=== PATIENT | female | born 1945 | race Caucasian/White ===

== ENCOUNTER → 2018-11-23 13:07 | Outpatient (CLI) | payer OTHER, SELFPAY ==
--- NOTE | 2018-11-23 | DI.CT.S_ITS ---
PROCEDURE: CT CHEST W CON INDICATIONS: SARCOIDOSIS TECHNIQUE: After the administration of intravenous contrast, 5 mm thick sections acquired from the pulmonary apices to the posterior costophrenic angles. 7 mm thick coronal and sagittal MIP reformats were acquired. For radiation dose reduction, the following was used: automated exposure control, adjustment of mA and/or kV according to patient size. COMPARISON: [facility], CT, CHEST HI-RESOLUTION, 09/27/2012, 11:54. [facility], CT, CHEST HIGH RESOLUTION, 06/02/2012, 13:13. [facility], CT, CT CHEST WO CON, 10/28/2015, 12:57. [facility], CT, CT CHEST WITHOUT CONTRAST, 11/07/2017, 9:11. FINDINGS: Image quality: Excellent. Lungs and pleura: There is right upper lobe airspace opacity involving the posterior segment, slightly increased. There are patchy groundglass infiltrates, which is new when compared to the last exam. There are numerous pulmonary nodules bilaterally, stable. There is mild left pleural thickening, unchanged. No pleural effusions. Central and peripheral airways are patent and normal in caliber. Mediastinum: Enlarged mediastinal and hilar lymph nodes are present. Multiple lymph nodes are calcified. Overall, there is no significant change. Heart size is normal. No pericardial effusion. No mediastinal or hilar adenopathy by size criteria. Thoracic aorta and central pulmonary arteries are normal in size. Esophagus is normal in caliber. No hiatal hernia. Bones and chest wall: No suspicious bony lesions. No vertebral body compression fractures. No axillary or supraclavicular adenopathy by size criteria. Thyroid gland is normal. Abdomen: Visualized upper abdominal solid organs appear normal. Upper abdominal bowel loops are normal in caliber. IMPRESSION: 1. New bilateral patchy groundglass infiltrates consistent with pneumonia/pneumonitis. The finding is new when compared to the last chest CT. 2. Airspace predominantly involving the posterior segment of the right upper lobe and left perihilar region are slightly increased. 3. Numerous pulmonary nodules bilaterally are stable. 4. Mediastinal and bilateral hilar lymphadenopathy. Multiple lymph nodes are calcified. Overall, lymphadenopathy is not significant changed. Dictated by: Neto Garza M.D. on 11/23/2018 at 14:51 Approved by: Neto Garza M.D. on 11/23/2018 at 18:10
== END ==
PROVIDERS: Family Provider Neuromusculoskeletal Medicine & OMM; PCP Family Medicine; Visit Provider Internal Medicine Critical Care Medicine
DX: D86.9 Sarcoidosis, unspecified (principal); R59.1 Generalized enlarged lymph nodes; R91.8 Other nonspecific abnormal finding of lung field
CPT/HCPCS: 71260; Q9967

== ENCOUNTER 2019-01-25 10:15 | Day surgery (SDC) | payer OTHER, SELFPAY ==
[2019-01-25] MEDS: LIDOCAINE 1% 30 ML INJ EYE-RIGHT (11:19)
[2019-01-25 11:20] VITALS: BP 132/73; PULSE 90; RESP 15; TEMP 36.7; O2SAT 95; BMI 25.1
[2019-01-25] MEDS: CATARACT EYE COMPOUND (10 DROPS/SYRINGE) 3 DROPS EYE-OP (11:20)
--- NOTE | 2019-01-25 12:21 | PM.PREOP ---
Pre-operative Note Interval Note History & Physical reviewed/Exam performed by Physician: Yes Changes to H&P: No
--- NOTE | 2019-01-25 12:35 | SUR.OPER ---
Supine on eye stretcher, head on extension cradle secured with tape. Arms tucked at sides with blanket. Pillow under knees.
[2019-01-25] MEDS: CHONDROIDTIN/SOD HYALURONATE 1.05 ML SYRINGE INTRAOCULA (12:37)
[2019-01-25] MEDS: PHENYLEPHRINE/LIDOCAINE VIAL (OR) 0.2 ML EYE-OP (12:37)
[2019-01-25] MEDS: MOXIFLOXACIN OPHTH DROPS 3 ML BOTTLE 2 DROPS INJ (12:37)
[2019-01-25] MEDS: BALANCED SALT IRRIG SOLN NO.2 500 ML, EPINEPHrine 1 MG IRR (12:38)
[2019-01-25] MEDS: LIDOCAINE 2% INJ SDV 5 ML INJ (12:39)
[2019-01-25] MEDS: BALANCED SALT IRRIG SOLN NO.2 15 ML IRR (12:40)
--- NOTE | 2019-01-25 12:51 | PM.OP.1 ---
Procedure & Clinicians Procedure: Cataract extraction with intraocular lens implant, right Same procedure as scheduled: Yes Indications: Visually significant cataract, right Surgeon: Gareth Dsouza Click Yes if Unassisted: Yes Anesthesia Type: MAC +/- Operative Notes Procedure in detail: The patient was brought to the operating suite. The correct patient, surgical site and lens were confirmed. 1 % lidocaine preservative free was placed in the right eye. The patient was prepped and draped in the typical sterile manner. A lid speculum was placed in the eye. 2% lidocaine preservative free was placed on the eye. A paracentesis port was created with a side-port blade. 0.1 mL of 1% preservative free lidocaine with phenylephrine was injected into the anterior chamber. Viscoelastic was injected into the anterior chamber. A 2.6mm keratome was used to create a clear corneal temporal incision. Cystotome and Utrata forceps were used to create a continuous curvilinear capsulorrhexis. Balanced salt solution was used to hydrodissect the nucleus. Phacoemulsification was used to remove the lens. The capsular bag was inflated with viscoelastic. A Stokes ZBOO +21.5 D lens was inserted into the capsule. Viscoelastic was removed and the wound hydrated. The wound was found to be leak free and the eye was assessed to be at normal physiologic pressure. 0.1mL Vigamox was injected into the anterior chamber. The lid speculum was removed and the patient left the operating room in excellent condition. Complications: none Condition: stable Disposition: same day surgery
[2019-01-25 13:05] VITALS: BP 132/65; PULSE 80; RESP 15; TEMP 36.4; O2SAT 94
--- NOTE | 2019-01-25 16:39 | SUR.PHASEII ---
latonya bill rn discharged pt and took out iv
== END 2019-01-25 13:11 ==
LOC: OR 10:17
PROVIDERS: PCP Family Medicine; Visit Provider Ophthalmology
DX: H26.8 Other specified cataract (principal); I10 Essential (primary) hypertension; J45.909 Unspecified asthma, uncomplicated
CPT/HCPCS: J0171; J2250; J2704; J3010

== ENCOUNTER 2019-02-15 07:56 | Day surgery (SDC) | payer OTHER, SELFPAY ==
[2019-02-15] MEDS: CATARACT EYE COMPOUND (10 DROPS/SYRINGE) 3 DROPS EYE-OP (08:50)
[2019-02-15 09:00] VITALS: BP 144/73; PULSE 89; RESP 15; TEMP 36.5; O2SAT 94; BMI 24.8
--- NOTE | 2019-02-15 09:54 | PM.PREOP ---
Pre-operative Note Interval Note History & Physical reviewed/Exam performed by Physician: Yes Changes to H&P: No
--- NOTE | 2019-02-15 10:12 | SUR.OPER ---
Supine on eye stretcher, head on extension cradle secured with tape. Arms tucked at sides with blanket. Pillow under knees.
[2019-02-15] MEDS: PHENYLEPHRINE/LIDOCAINE VIAL (OR) 0.2 ML EYE-OP (10:18)
[2019-02-15] MEDS: MOXIFLOXACIN OPHTH DROPS 3 ML BOTTLE 2 DROPS INJ (10:19)
[2019-02-15] MEDS: CHONDROIDTIN/SOD HYALURONATE 1.05 ML SYRINGE INTRAOCULA (10:19)
[2019-02-15] MEDS: BALANCED SALT IRRIG SOLN NO.2 15 ML IRR (10:20)
[2019-02-15] MEDS: TETRACAINE 0.5% OPHTH DROPS 4 ML 1 DROPS EYE-LEFT (10:20)
[2019-02-15] MEDS: BALANCED SALT IRRIG SOLN NO.2 500 ML, EPINEPHrine 1 MG IRR (10:21)
[2019-02-15] MEDS: LIDOCAINE 2% INJ SDV 0.5 ML TOP (10:22)
--- NOTE | 2019-02-15 10:33 | PM.OP.1 ---
Procedure & Clinicians Procedure: Cataract extraction with intraocular lens implant, left Same procedure as scheduled: Yes Indications: Visually significant cataract, left Surgeon: Gareth Dsouza Click Yes if Unassisted: Yes Anesthesia Type: MAC +/- Operative Notes Procedure in detail: The patient was brought to the operating suite. The correct patient, surgical site and lens were confirmed. 0.5 % tetracaine drops were placed in the left eye. The patient was prepped and draped in the typical sterile manner. A lid speculum was placed in the eye. 2% lidocaine was placed on the eye. A paracentesis port was created with a side-port blade. 0.1 mL of 1% preservative free lidocaine with phenylephrine was injected into the anterior chamber. Viscoelastic was injected into the anterior chamber. A 2.6mm keratome was used to create a clear corneal temporal incision. Cystotome and Utrata forceps were used to create a continuous curvilinear capsulorrhexis. Balanced salt solution was used to hydrodissect the nucleus. Phacoemulsification was used to remove the lens. The capsular bag was inflated with viscoelastic. A Stokes ZBOO +22.0D lens was inserted into the capsule. Viscoelastic was removed and the wound hydrated. The wound was found to be leak free and the eye was assessed to be at normal physiologic pressure. 0.1mL Vigamox was injected into the anterior chamber. The lid speculum was removed and the patient left the operating room in excellent condition. Complications: none Condition: stable Disposition: same day surgery
[2019-02-15 10:36] VITALS: BP 121/59; PULSE 76; RESP 16; TEMP 36.3; O2SAT 94
== END 2019-02-15 10:45 | disposition home or self-care (01) ==
LOC: OR 08:00
PROVIDERS: PCP Family Medicine; Visit Provider Ophthalmology
DX: H26.8 Other specified cataract (principal); I10 Essential (primary) hypertension; F32.9 Major depressive disorder, single episode, unspecified; J45.909 Unspecified asthma, uncomplicated; I47.1 Supraventricular tachycardia
CPT/HCPCS: J0171; J2250; J3010

== ENCOUNTER → 2019-03-02 07:49 | Outpatient (CLI) | payer OTHER, SELFPAY ==
--- NOTE | 2019-03-02 | DI.ECHO.S_ITS ---
[facility]---------+ [facility] +---------+ : : [address] [place] : : : : [id number] : : : : Phone: [phone]+ Echocardiogram Report + + :Name: DEBORAH BERUMEN Study Date: 03/02/2019 Height: 62 in : :[facility] Weight: 150 lb : : Gender: Female BSA: 1.7 m2 : :: 1945 Age: 73 yrs BP: 172/78 mmHg: :Reason For Study: Sarcoidosis : :Ordering Physician: Janet : :Jesus Performed By: Aurelia Ceballos : :Referring: NEHA RUBIO : + + Interpretation Summary 1) Normal left ventricular thickness, size, wall motion, and systolic function (EF 60-65%). 2) Normal right ventricular size and function. 3) No significant valvular abnormalities. 4) The right ventricular systolic pressure is estimated to be at least 55 mmHg based on an estimated right atrial pressure of 3 mm Hg. 5) Compared to the Echo done 02/27/2016, pulmonary hypertension is present on this study. Procedure: A two-dimensional transthoracic echocardiogram with color flow and Doppler was performed. The study quality was technically adequate. Comparison is made with the echocardiogram of 02-27-16. The patient was in normal sinus rhythm during the exam. Left Ventricle: The left ventricle is normal in size, wall thickness, and systolic function without any focal wall motion abnormalities. The ejection fraction is estimated to be 60-65%. Diastolic parameters suggest probable normal left ventricular diastolic function and normal filling pressures. Right Ventricle: The right ventricle grossly appears normal in size with probable normal systolic function. Atria: The left atrial size is normal. Right atrial size is normal. The interatrial septum is intact with no evidence for an atrial septal defect. Mitral Valve: The mitral valve is normal in structure and function. There is no mitral regurgitation noted. Aortic Valve: The aortic valve opens well. There is no aortic valve stenosis. No aortic regurgitation is present. Tricuspid Valve: The tricuspid valve leaflets are thin and pliable. There is mild tricuspid regurgitation. The right ventricular systolic pressure is estimated to be at least 55 mmHg based on an estimated right atrial pressure of 3 mm Hg. Pulmonic Valve: The pulmonic valve is not well seen, but is grossly normal. There is no pulmonic valvular regurgitation. Great Vessels: The aortic root is normal size. The dimensions of the ascending aorta are normal. The aortic arch is normal in size. The IVC is of normal diameter and collapses greater than 50% with a sniff. This suggests a low right atrial pressure of 3 mm Hg. Pericardium/ Pleura There is no pericardial effusion. There is no pleural effusion. MMode/2D Measurements & Calculations LVIDd: 4.6 cm Ao root diam: 2.7 cm LVIDs: 2.8 cm Aortic Jxn: 2.3 cm FS: 40.1 % asc Aorta Diam: 2.8 cm EPSS: 0.68 cm Ao Arch Diam (Prox Trans): 2.6 cm IVSd: 0.86 cm LVPWd: 1.1 cm LV muñoz. diameter/BSA (cm/m^2): 2.7 LV sys. diameter/BSA (cm/m^2): 1.6 LA dimension: 3.7 cm RA long axis: 4.4 cm LA A2 area: 19.2 cm2 RA area: 12.4 cm2 LA A4 area: 17.3 cm2 RA vol: 29.7 ml LA length (vol): 5.0 cm RA : 17.6 ml/m2 LA vol: 55.9 ml IVC diam: 1.4 cm LA vol index: 33.1 ml/m2 RVDd major: 5.5 cm RVD1 (basal): 3.1 cm RVD2 (mid): 2.7 cm Doppler Measurements & Calculations Ao V2 max: 153.7 cm/sec MV E max scot: 97.0 cm/sec Ao V2 mean: 98.3 cm/sec MV A max scot: 126.1 cm/sec Ao max P.4 mmHg MV E/A: 0.77 Ao mean P.5 mmHg Med Peak E' Scot: 8.3 cm/sec Ao V2 VTI: 32.2 cm E/E' med: 11.8 Lat Peak E' Scot: 8.0 cm/sec E/E' lat: 12.1 E/e' average: 11.9 MV dec time: 0.22 sec MV P1/2t: 64.0 msec TR max scot: 360.6 cm/sec MV P1/2t max scot: 96.5 cm/sec TR max P.0 mmHg MVA(P1/2t): 3.4 cm2 PA V2 max: 76.8 cm/sec PA V2 mean: 57.0 cm/sec PA mean P.4 mmHg PA Accel Time: 0.14 sec Reading Physician:12:11 PM
--- NOTE | 2019-03-30 16:54 | PM.PFT.1 ---
Pulmonary Function Test Referral & Results Date Patient Seen: 03/02/19 Requesting provider: Dee Gardner Indication: Dyspnea Results: The spirometry demonstrates an FVC of 2.12 L which is 71% of predicted. The FEV1 was measured at 1.84 L which is 82% of predicted. The FEV1/FVC ratio was 87 which is 115% of predicted. Following the administration of bronchodilator there was no significant change. Lung volumes show an SVC of 2.30 L which is 80% of predicted. The diffusing capacity was measured at 12.27 which is 47% of predicted. No hemoglobin value was provided, so no correction for potential anemia could be made, if appropriate. The maximum voluntary ventilation was reduced Interpretation: This study demonstrates mild obstructive lung disease without evidence of significant benefit following bronchodilator There may also be mild restrictive lung disease present based on slight reduction in SVC There is a more significant reduction in diffusing capacity suggesting more significant disease of the capillary alveolar level Compared to PFTs performed in May 2012, spirometry shows decline in FEV1 and SVC. There is also a smaller decline in diffusing capacity Clinical correlation suggested
== END ==
PROVIDERS: PCP Family Medicine; Visit Provider Internal Medicine Critical Care Medicine
DX: R06.09 Other forms of dyspnea (principal); D86.0 Sarcoidosis of lung; D86.9 Sarcoidosis, unspecified
CPT/HCPCS: 93306; 94060; 94726; 94729

== ENCOUNTER → 2019-03-14 09:03 | Outpatient (CLI) | payer OTHER, SELFPAY ==
--- NOTE | 2019-03-14 | DI.CT.S_ITS ---
PROCEDURE: CT CHEST W CON INDICATIONS: PULMONARY SARCOIDOSIS TECHNIQUE: After the administration of intravenous contrast, 5 mm thick sections acquired from the pulmonary apices to the posterior costophrenic angles. 7 mm thick coronal and sagittal MIP reformats were acquired. For radiation dose reduction, the following was used: automated exposure control, adjustment of mA and/or kV according to patient size. COMPARISON: [facility], CT, CT CHEST W CON, 11/23/2018, 13:13. [facility], CT, CHEST HIGH RESOLUTION, 06/02/2012, 13:13. FINDINGS: Image quality: Excellent. Lungs and pleura: Numerous poorly defined nodules are seen throughout the lungs, which are overall improved compared to the 11/23/18 CT examination. Areas of pulmonary consolidation are seen, which are most prominent involving the right upper lobe. These consolidated regions are also improved compared to the prior CT examination. No pneumothorax can be seen. There is a trace left-sided pleural effusion. No right-sided neural effusion is seen. The central airways are patent. Mediastinum: Heart size is normal. No pericardial effusion. No mediastinal or hilar adenopathy by size criteria. Numerous calcified lymph nodes are seen involving the mediastinum and perihilar regions. Thoracic aorta and central pulmonary arteries are normal in size. Esophagus is normal in caliber. No hiatal hernia. Bones and chest wall: No suspicious bony lesions. No vertebral body compression fractures. Age-appropriate bony degenerative changes are seen. Accentuated thoracic kyphosis is seen. No axillary or supraclavicular adenopathy by size criteria. Thyroid gland is small in size. Abdomen: Gastroesophageal junction postoperative changes are seen. Calcified foci are seen adjacent to the distal esophagus, which are attributed to calcified lymph nodes and appears similar to the calcified lymph node seen within the mediastinum. The visualized portions of the upper abdominal structures are otherwise unremarkable for imaging technique. IMPRESSION: Improved poorly defined pulmonary nodules and areas of consolidation within the lungs compared to the prior CT. Trace left-sided pleural effusion. Numerous densely calcified lymph nodes are seen involving the mediastinum, or hilar regions, and adjacent to the distal esophagus. Dictated by: Hector Penaloza M.D. on 03/14/2019 at 9:17 Approved by: Hector Penaloza M.D. on 03/14/2019 at 9:22
== END ==
PROVIDERS: PCP Family Medicine; Visit Provider Internal Medicine Critical Care Medicine
DX: D86.0 Sarcoidosis of lung (principal)
CPT/HCPCS: 71260; Q9967

== ENCOUNTER → 2019-03-21 09:57 | Outpatient (CLI) | payer OTHER, SELFPAY ==
--- NOTE | 2019-03-21 14:49 | PM.TREADMILL ---
Cardiac Stress Test Report Referral & Results Date Patient Seen: 03/21/19 Time Patient Seen: 14:30 Requesting provider: Enrique Unger Indication: Pulmonary HTN, SINGH Procedure Note: Today following both written and verbal informed consent the patient was exercised according to a standard Jamil protocol patient went for a total of 4:46 achieving a maximum heart rate of 116 maximum systolic blood pressure of 160. This is approximately 7 METS. Exercise was terminated at this point because the patient was unable to continue. Experienced angina, shortness of breath, lightheadedness. Patient was also given Cardiolite through a previously started Hep-Lock IV by the nuclear plant construction worker approximately 30 seconds prior to the cessation of exercise. Her dyspnea and lightheadedness progressed faster than expected. Symptoms resolved with rest. BONITA 10% on sedentary scale. Mild ST depression in II-III-aVF resolved with rest. Impression: Will await perfusion imaging. Clinical interpretation is complicated by pre-existing pulmonary hypertension and sarcoidosis. Please note: Actual ECG tracings can be found in the PACS system.
--- NOTE | 2019-03-21 14:53 | P.PCN_ITS ---
Cardiac Stress Test Report Referral & Results Date Patient Seen: 03/21/19 Time Patient Seen: 14:30 Requesting provider: Enrique Unger Indication: Pulmonary HTN, SINGH Procedure Note: Today following both written and verbal informed consent the patient was exercised according to a standard Jamil protocol patient went for a total of 4:46 achieving a maximum heart rate of 116 maximum systolic blood pressure of 160. This is approximately 7 METS. Exercise was terminated at this point because the patient was unable to continue. Experienced angina, shortness of breath, lightheadedness. Patient was also given Cardiolite through a previously started Hep-Lock IV by the nuclear radiation engineer approximately 30 seconds prior to the cessation of exercise. Her dyspnea and lightheadedness progressed faster than expected. Symptoms resolved with rest. BONITA 10% on sedentary scale. Mild ST depression in II-III-aVF resolved with rest. Impression: Will await perfusion imaging. Clinical interpretation is complicated by pre-existing pulmonary hypertension and sarcoidosis. Please note: Actual ECG tracings can be found in the PACS system.
--- NOTE | 2019-03-21 19:00 | DI.NM.S_ITS ---
DATE OF SERVICE: 03/21/2019 PROCEDURE: Exercise perfusion study. INDICATIONS: Shortness of breath with underlined sarcoidosis, hypertension, hyperlipidemia, history of atrial fibrillation. RADIOPHARMACEUTICAL: 27.9 mCi technetium-99m Myoview IV was injected at stress and 12.6 mCi technetium-99m Myoview IV was injected at rest. CARDIAC STRESS: Patient underwent exercise perfusion study under the supervision of an attending staff. The patient walked on Jamil protocol for about 4 minutes 46 seconds and achieved normal blood pressure and target heart rate of 79%. Functional aerobic impairment +10%. She achieved 7 METs of workload. She felt shortness of breath and lightheadedness on exertion. Baseline EKG revealed sinus rhythm with up to 0.5 mm of horizontal upsloping ST depression in inferiorly leads and lead V3 to V6 which got slightly more pronounced during exercise. Artifacts seen during exercise as well. There were no significant sustained arrhythmias seen. RAW DATA: There was breast shadow seen. There was increased subdiaphragmatic activity. GATED STUDY: Resting LV ejection fraction 87 and stress LV ejection fraction 91%. No obvious wall motion abnormalities. Resting end-diastolic volume is 62 mL. No transient ischemic dilatation. TID ratio is 1.04, which is within normal limits. Lung/heart ratio is 0.04, which is within normal limits. MYOCARDIAL PERFUSION SCAN: Stress supine, resting supine, and stress prone images were compared to each other. Stress and resting supine images revealed minimally decreased perfusion of anterior apex wall which got resolved during prone images suggestive of tissue attenuation artifact. CONCLUSION: I will call this study a normal myocardial perfusion study. However, patient has submaximal exercise stress test. Patient achieved 79% of target heart rate and felt shortness of breath, lightheadedness on exertion. Will recommend clinical correlation, and if there is a clinical suspicion for coronary artery disease that is high, consider pharmacological perfusion study or dobutamine stress echo. NunezJunaid randolph - JOSE JUAN/juan francisco/ doc#: [id number]/job#: [id number] dd: 03/21/2019 16:51:00 dt: 03/21/2019 18:50:00 DICTATING MD/COPIES TO: Tobi Hernandez MD COPIES MNE: BRYCE
== END ==
PROVIDERS: PCP Family Medicine; Visit Provider Internal Medicine Cardiovascular Disease
DX: R07.9 Chest pain, unspecified (principal); R06.02 Shortness of breath; D86.9 Sarcoidosis, unspecified; I27.20 Pulmonary hypertension, unspecified; I48.91 Unspecified atrial fibrillation; R06.00 Dyspnea, unspecified; R42 Dizziness and giddiness; I10 Essential (primary) hypertension; E78.5 Hyperlipidemia, unspecified
CPT/HCPCS: 78452; 93016; 93017; 93018; A9502

== ENCOUNTER → 2019-06-04 10:41 | Outpatient (CLI) | payer OTHER, SELFPAY ==
--- NOTE | 2019-06-04 | DI.CT.S_ITS ---
PROCEDURE: CT UE LT WO CON INDICATIONS: Pain in left hand TECHNIQUE: Noncontrast 1 mm axial sections acquired through the carpal bones, with coronal and sagittal reformats. COMPARISON: [facility], JULIO CESAR CAI RIGHT HEART CATH, 03/29/2019, 9:56. FINDINGS: Image quality: Diagnostic. Bones: No acute fracture, dislocation, or suspicious osseous lesion is appreciated involving the osseous structures of the hand. Mild to moderate degenerative changes are noted involving the joints of the wrist, which are more prominent involving the basal joint of the thumb, triquetrum, and capitate. No widening of the scapholunate or lunotriquetral joints are appreciated. No definitive osseous erosions are appreciated. Soft tissues: No soft tissue masses or fluid collections are evident. Areas of mild subcutaneous edema may be present involving the fingers. No significant atrophy is appreciated involving the intrinsic muscles. Please note that the tendons, ligaments, and cartilaginous structures of the hand are not well dilated on CT. IMPRESSION: 1. No acute fractures of the left hand. 2. Mild to moderate degenerative changes involving the joints of the wrist. Dictated by: Rich Reeder M.D. on 06/04/2019 at 13:59 Approved by: Rich Reeder M.D. on 06/04/2019 at 14:14
== END ==
PROVIDERS: PCP Family Medicine; Visit Provider Family Medicine
DX: M79.642 Pain in left hand (principal)
CPT/HCPCS: 73200

== ENCOUNTER → 2019-12-20 12:52 | Outpatient (CLI) | payer MEDICARE, SELFPAY ==
--- NOTE | 2019-12-20 13:10 | DI.CT.S_ITS ---
PROCEDURE: CT CHEST WO CON INDICATIONS: SARCOIDOSIS, UNSPECIFIED TECHNIQUE: Noncontrast 5 mm thick sections acquired from the pulmonary apices to the posterior costophrenic angles. 1 mm lung window, 5 mm thick coronal and sagittal and 7 mm axial MIP reformats were then acquired. For radiation dose reduction, the following was used: automated exposure control, adjustment of mA and/or kV according to patient size. COMPARISON: [facility], CT, CT CHEST W CON, 03/14/2019, 9:13. FINDINGS: Image quality: Excellent. Lungs and pleura: No definite new focal consolidation seen. There is redemonstration bilateral diffuse ill-defined pulmonary nodules since the prior study with no definite interval change. Grossly unchanged appearance of confluent nodules and/or consolidation involving the right upper lobe No pleural effusions or pneumothorax. There is diffuse airway thickening, and scattered areas of traction bronchiectasis. Diffuse scarring/atelectasis as before. Mediastinum: Heart size is normal. Coronary artery calcifications are present. No pericardial effusion. No mediastinal adenopathy by size criteria. Numerous calcified bilateral hilar and mediastinal lymph nodes as before, also unchanged. Thoracic aorta and central pulmonary arteries are normal in size. Esophagus is normal in caliber. No hiatal hernia. Bones and chest wall: No suspicious bony lesions. No vertebral body compression fractures. No axillary or supraclavicular adenopathy by size criteria. Thyroid gland negative. Abdomen: Visualized upper abdominal solid organs and bowel loops appear normal in the absence of contrast. IMPRESSION: Overall, grossly stable examination since 03/14/19. Redemonstration of numerous bilateral pulmonary nodules, with grossly unchanged appearance. Interval resolution of previous trace left pleural effusion. Numerous calcified lymph nodes involving the mediastinum, hilar regions and GE junction as before Dictated by: Jermain Malhotra M.D. on 12/20/2019 at 15:20 Approved by: Jermain Malhotra M.D. on 12/20/2019 at 15:28
--- NOTE | 2019-12-28 09:06 | PM.PFT.1 ---
Pulmonary Function Test Referral & Results Date Patient Seen: 12/20/19 Requesting provider: Agnieszka Dennis Results: The spirometry demonstrates an FVC of 2.40 L which is 81% of predicted. The FEV1 was measured at 2.16 L which is 97% of predicted. The FEV1/FVC ratio was 90 which is 120% of predicted. Following the administration of bronchodilator there was no appreciable change. Lung volumes show an SVC of 2.43 L which is 84% of predicted. The diffusing capacity was measured at 13.02 which is 50% of predicted. No hemoglobin value was provided, so no correction for potential anemia could be made, if appropriate. The maximum voluntary ventilation was reduced Interpretation: This study demonstrates probably normal spirometry but a moderately severe reduction in diffusing capacity suggesting significant disease at the capillary alveolar level. Compared to PFTs performed in February 2019, current study shows improvement in lung volumes and spirometry and essentially unchanged diffusing capacity Clinical correlation suggested
== END ==
PROVIDERS: PCP Family Medicine; Referring Provider Specialist; Visit Provider Specialist
DX: D86.9 Sarcoidosis, unspecified (principal); R05 Cough
CPT/HCPCS: 71250; 94060; 94726; 94729

== ENCOUNTER → 2021-08-05 10:44 | Outpatient (CLI) | payer MEDICARE, SELFPAY ==
[2021-08-05 12:08] LABS: COVID19 -Nasal RAPID Negative (Negative)
== END ==
PROVIDERS: PCP Family Medicine; Referring Provider Internal Medicine; Visit Provider Internal Medicine
DX: Z20.822 Contact with and (suspected) exposure to COVID-19 (principal)
CPT/HCPCS: 87635; C9803

== ENCOUNTER → 2021-08-06 06:59 | Outpatient (CLI) | payer MEDICARE, SELFPAY | PROVIDERS: PCP Family Medicine; Referring Provider Specialist; Visit Provider Specialist | DX: D86.9 Sarcoidosis, unspecified (principal); R94.2 Abnormal results of pulmonary function studies ==

== ENCOUNTER → 2021-08-19 09:41 | Outpatient (CLI) | payer MEDICARE, SELFPAY ==
[2021-08-19 11:29] LABS: COVID19 -Nasal RAPID Negative (Negative)
== END ==
PROVIDERS: PCP Family Medicine; Referring Provider Internal Medicine; Visit Provider Internal Medicine
DX: Z20.822 Contact with and (suspected) exposure to COVID-19 (principal)
CPT/HCPCS: 87635; C9803

== ENCOUNTER → 2021-08-20 06:40 | Outpatient (CLI) | payer MEDICARE, SELFPAY ==
--- NOTE | 2021-08-26 08:41 | PM.PFT.1 ---
Pulmonary Function Test Referral & Results Date Patient Seen: 08/20/21 Requesting provider: Agnieszka Dennis Results: The spirometry demonstrates an FVC of 2.02 L which is 70% of predicted. The FEV1 was measured at 1.74 L which is 81% of predicted. The FEV1/FVC ratio was 87 which is 116% of predicted. Following the administration of bronchodilator there was a 27% improvement in FEF 25-75% Lung volumes show an SVC of 2.08 L which is 73% of predicted. The diffusing capacity was measured at 11.17 which is 43% of predicted. No hemoglobin value was provided, so no correction for potential anemia could be made, if appropriate. The maximum voluntary ventilation was severely reduced Interpretation: This study demonstrates possibly mild obstructive lung disease based on reduction FEV1 although FEV1/FVC ratio is preserved and there really is very minimal evidence of any benefit following bronchodilator There is a moderate reduction in lung volumes suggesting moderate restrictive lung disease is present which may well explain the decrease in FEV1 above There is a more significant reduction diffusing capacity suggesting significant disease at the capillary alveolar level Compared to PFTs performed in November 2019, current study shows slight decline in lung volumes and diffusing capacity Clinical correlation suggested
== END ==
PROVIDERS: PCP Family Medicine; Referring Provider Specialist; Visit Provider Specialist
DX: R05.9 Cough, unspecified (principal); J98.8 Other specified respiratory disorders; D86.0 Sarcoidosis of lung
CPT/HCPCS: 94060; 94726; 94729